=== PATIENT | male | born 1940 | race Caucasian/White ===

== ENCOUNTER 2016-12-15 04:02 | Inpatient (IN) | payer MEDICARE ==
[2016-12-15] VITALS (21 sets, daily range): BP systolic 104–160; BP diastolic 65–101; PULSE 54–82; RESP 14–20; O2SAT 92–98
[~2016-12-15] VITALS: Ht 180.3 cm; Wt 101.6 kg
[~2016-12-15 04:02] MED LIST: ZES10 PO
[2016-12-15] MEDS ORDERED: Heparin 25,000 Unit/500 mL 0.45% NS Premix IV ONE (04:24)
[2016-12-15] MEDS ORDERED: Nitroglycerin 50,000 mcg/250 mL D5W Premix IV ONE ×2 (04:24→04:51)
[2016-12-15] MEDS ORDERED: MeTOProlol 1 mg/mL 5 mL Inj ONE (04:24)
[2016-12-15] MEDS ORDERED: Nitroglycerin 2% 1 Gm Ointment TOPICAL ONE (04:24)
[2016-12-15] MEDS ORDERED: Ondansetron 2 mg/mL 2 mL Inj ONE (04:25)
[2016-12-15] MEDS ORDERED: Heparin 5,000 Unit/mL Inj ONE (04:26)
[2016-12-15 04:43] LABS: BASOPHILS % (AUTO) 0.2 % (0-3); EOSINOPHILS % (AUTO) 0.8 % (0-5); MONOCYTES % (AUTO) 4.7 % (4-12); Mean Corpuscular Hemoglobin 31.1 pg (27.0-35.0); Mean Corpuscular Volume 89.3 fL (81-100); NEUTROPHILS % (AUTO) 83.2 % (40-74); Platelet Count 209 bil/L (150-400)
--- NOTE | 2016-12-15 04:47 | ED.REPORT ---
HPI-Chest Pain 40 and Over Date of Service Dec 15, 2016 ED Provider: Darwin Arreola MD A 76 year old male with a history of hypertension presents to the ED complaining of abdominal pain and chest tightness. The pt began experiencing these symptoms two days ago, which he attributed to indigestion. The pain waxed and waned since, resolving briefly yesterday. The pain returned after dinner and radiated more noticeably into his chest. The pt woke at 03:00 this morning and decided to seek medical care. The pt denies nausea, vomiting, or diaphoresis. He also denies any history of cardiac disease, stomach ulcers, or GI bleed. Nursing Notes Stated Complaint: CHEST PAIN Chief Complaint: Male Abdominal Pain Nursing Notes Reviewed: Yes Allergies: Coded Allergies: No Known Allergies (Unverified , 12/15/16) Scheduled Lisinopril-Expunged Drug, Do Not Renew! (Lisinopril-Expunged Drug, Do Not Renew! ) 10 Mg Tablet 10 MG PO DAILY General Time Seen by MD: 04:46 Chief Complaint Chest pain Hx Obtained From: Patient Arrived By: Walk-in Sudden in Onset?: No Onset Occurred: 2 days ago Symptom Duration: Intermittent Recent Healthcare: No recent doctor visit, No recent hospitalization Similar Sx Previous: No Past Medical History Past Medical History hypertension arthritis Past Surgical History colonoscopy Smoking History Unknown if Ever Smoker Social History Other Social History: Good social support, Ambulatory Status Independent Review of Systems Constitutional: Denies: Fever Respiratory: Denies: Non-productive cough Cardiovascular: Reports: Chest pain GI: Reports: Abdominal pain, Nausea, Denies: Vomiting Musculoskeletal: Denies: Back pain Skin: Denies Rash Complete sys rev & neg: except as marked. Physical Exam Initial Vital Signs Vital Signs (First) Date Time Temp Pulse Resp B/P Pulse Ox O2 Delivery O2 Flow Rate FiO2 12/15/16 04:05 36.1 63 16 158/93 95 Room Air Initial VS: Reviewed General/Constitutional: Awake, Alert Respiratory / Chest: Atraumatic, Breath sounds NL, Breath sounds = bilat, No respiratory distress Cardiovascular: Heart rate NL, Regular rhythm, Heart sounds NL Abdomen: Atraumatic, Soft, Non-tender Neck: Atraumatic, Supple, Full range of motion Back: Atraumatic, Full range of motion Lower Extremity / Pelvis / MS: Atraumatic, Full range of motion Skin: Atraumatic, Color NL, No rash, Warm, Dry Neurologic: Oriented X3, Speech NL, No motor deficits, No sensory deficits Psychiatric: Affect NL, Mood NL Head / Eyes: Atraumatic, Normocephalic, PERRL, EOMI ENT: Atraumatic, Airway patent, Mucous membranes moist Upper Extremity / MS: Atraumatic, Full range of motion Interpretation & Diagnostics Lab Results Interpretation Result Diagram: 12/15/16 0430 12/15/16 0430 Test 12/15/16 04:30 White Blood Count 10.1th/mm3 (3.8-10.1) Red Blood Count 5.79mil/mm3 (4.40-5.80) Hemoglobin 18.0g/dL (13.8-17.2) Hematocrit 51.7% (41.0-50.0) Mean Corpuscular Volume 89.3fL (81-100) Mean Corpuscular Hemoglobin 31.1pg (27.0-35.0) Mean Corpuscular Hemoglobin Concent 34.8% (32.0-37.0) Red Cell Distribution Width 13.4% (12.3-15.4) Platelet Count 209bil/L (150-400) Neutrophils (%) (Auto) 83.2% (40-74) Lymphocytes (%) (Auto) 11.0% (14-46) Monocytes (%) (Auto) 4.7% (4-12) Eosinophils (%) (Auto) 0.8% (0-5) Basophils (%) (Auto) 0.2% (0-3) Prothrombin Time 10.6sec (8.1-12.5) Prothromb Time International Ratio 0.99ratio Activated Partial Thromboplast Time 27.3sec (22.8-33.0) Sodium Level 138mEq/L (134-144) Potassium Level 3.7mEq/L (3.5-5.2) Chloride Level 98mEq/L (97-108) Carbon Dioxide Level 23mmol/L (18-29) Blood Urea Nitrogen 14mg/dL (8-27) Creatinine 0.99mg/dL (0.76-1.27) Estimat Glomerular Filtration Rate 78mL/min (>59) Glucose Level 162mg/dL (60-99) Calcium Level 9.1mg/dL (8.5-10.1) Magnesium Level 2.1mg/dL (1.6-2.6) Total Bilirubin 0.8mg/dL (0.0-1.2) Aspartate Amino Transf (AST/SGOT) 40U/L (0-50) Alanine Aminotransferase (ALT/SGPT) 39U/L (0-44) Alkaline Phosphatase 71U/L (25-160) Total Creatine Kinase 270U/L (21-232) Creatine Kinase MB 23.9ng/mL (0.0-10.4) Creatine Kinase MB % 8.9% (0.0-5.0) Troponin T 0.138ug/L (0.0-0.011) Total Protein 7.6g/dL (6.4-8.4) Albumin 4.4g/dL (3.4-5.0) Hold Rolle Top Tube Received (Received) ECG Interpretation ECG Interpretation: normal sinus rhythm with a rate of 60 abnormal R-wave progression, early transition inferior infarct, acute ST elevation, consider anterior injury probable RV involvement, suggest recording right precordial leads Time: 04:20 Interpreted by: ED physician X-Ray Chest Interpretation Chest Xray Interpretation: no acute findings Interpretation / Wet Read by: Wet read ED physician Re-Eval/Medical Decision Med Decision/Clinical Course 76-year-old presents with stuttering chest pain beginning two days ago, with pain-free. Yesterday and then recurrent pain tonight. EKG shows inferolateral STEMI. There is some cueing inferiorly already. Team consulted and he is taken to the laboratory equipment installer promptly for revascularization. Time of Eval: 04:46 Re-Evaluation/Progress Note: Pt informed of the need for admission during the initial interview. The pt understands and agrees with the plan. All questions are addressed at this time. Time of Eval: 04:52 Re-Evaluation/Progress Note: Pt rechecked to reevaluate vitals. The plan for admission is further discussed. Consultation : Referral / Consult Name: Basim Rios MD Consulted With: Cardiology Call Returned at: 04:26 Brancher: Agrees with eval, Agrees with plan Note: Spoke with Dr. Rios, cardiology, regarding pt's case. Dr. Rios agrees with the evaluation and agrees to admit the pt to the laboratory equipment installer. Counseled Regarding: Diagnosis, Lab results, Need for admission Discharge & Departure Primary Impression: STEMI (ST elevation myocardial infarction) Additional Impression: Acute OR, inferolateral wall Disposition: ADMITTED TO HOSPITAL Discharge Condition All VS Reviewed: Yes Condition: Stable Referrals: Dallas Cavanaugh MD (PCP) Crit Care Except Billable Proc Time Spent: 30-74 minutes (thirty minutes) Services Performed: Patient management by me, Time spent at bedside, Reviewing test results, Reviewing imaging, Discussing patient care, Documentation in record, Time with fam/surrogate Scribe Attestation Portions of this note were transcribed by Aj Stringer. I, Dr. Arreola personally performed the history, physical exam and medical decision-making; I reviewed and confirmed the accuracy of the information in the transcribed note. Signed by: Shen Siddiqui, 12/15/2016 and 0538. copies to: Dallas Cavanaugh MD, Christopher W MD Dec 15, 2016 04:47 AJ STRINGER Dec 15, 2016 05:06
[2016-12-15] MEDS ORDERED: Heparin 1,000 Units/500 mL NS Premix IV ONE (04:51)
[2016-12-15] MEDS ORDERED: Atropine 1 mg/10 mL (Code) Syringe ONE (04:51)
[2016-12-15] MEDS ORDERED: Phenylephrine/NS-PF 100 mCg/mL 5 mL Syringe IVPUSH ONE (04:51)
[2016-12-15] MEDS ORDERED: Heparin 1,000 Unit/mL 10 mL Inj ONE ×3 (04:51→05:37)
[2016-12-15] MEDS ORDERED: 0.9% Sodium Chloride 2,000 ML ONE (04:51)
[2016-12-15 05:00] LABS: INR 0.99 ratio
[2016-12-15] MEDS ORDERED: fentaNYL-PF 50 mCg/mL 2 mL Inj ONE (05:18)
[2016-12-15 05:30] LABS: Magnesium 2.1 mg/dL (1.6-2.6)
[2016-12-15 05:35] LABS: TROPONIN T 0.138 ug/L (0.0-0.011)
[2016-12-15] MEDS ORDERED: 0.9% Sodium Chloride 1,000 ML ONE (05:37)
[2016-12-15] MEDS ORDERED: 0.9% Sodium Chloride 400 ML (4 HRS) IV ONE (07:30)
[2016-12-15] MEDS ORDERED: Sodium Chloride LOK Flush 10 mL Syringe IVFLUSH PRN (07:30)
[2016-12-15] MEDS ORDERED: Ondansetron 2 mg/mL 2 mL Inj IVPUSH PRN (07:30)
[2016-12-15] MEDS ORDERED: 0.9% Sodium Chloride 250 ML BOLUS IV PRN (07:30)
[2016-12-15] MEDS ORDERED: Atropine 1 mg/10 mL (Code) Syringe IVPUSH PRN (07:30)
--- NOTE | 2016-12-15 08:29 | NUR ---
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 Pain free. HR 50', no ectopy. Right groin with angioseal, no evidence bleeding or hematoma. Admission complete, pt alert, oriented and participatory in process. Wallet and cell phone to go home with .
--- NOTE | 2016-12-15 08:46 | CS94 ---
[address] [address] DIAGNOSTIC CARDIAC CATHETERIZATION PATIENT: DAY SKINNER : 1940 MR#: [id number] ADMIT: 12/15/2016 JOB ID: [id number] SERVICE DATE: 12/15/2016 PROCEDURE NOTE -- CARDIAC CATHETERIZATION LABORATORY: DATE OF PROCEDURE: Thursday, December 15, 2016. SERVICE DELIVERY SUPERVISOR: Basim Rios MD. PROCEDURES: 1. Coronary angiogram -- emergent. 2. Percutaneous coronary intervention (PCI) with drug-eluting stent (REINA) of occluded proximal right coronary artery (RCA) -- Xience 3.0 x 23 mm (post dilated to 4.0 mm). 3. Left heart catheterization (LHC): a. Pressure measurement: Left ventricular end-diastolic (LVED) and pullback. b. Left ventriculogram (LVG). CLINICAL DETAILS: This 76-year-old man presented to the emergency department by personal vehicle with ongoing discomfort that had been present for over two days. The discomfort was in his upper abdomen. ECG shows inferior ST elevation with confirmatory reciprocal ST depression. PROCEDURAL DETAILS: I evaluated him emergently in the emergency department. I discussed the findings, impressions and management considerations with him and his including the recommendation to proceed emergently to coronary angiogram for definitive diagnosis and to determine treatment options including medical therapy, anticipated PCI, or coronary bypass surgery, if needed. We discussed the procedure including possible risks and complications. We discussed bleeding, infection and blood clots; as well as injury to nerve, artery, vein, or kidney; and also arrhythmia, drug reaction, or others. We discussed treatment as needed including surgery, pacemaker, or transfusion. We discussed more serious complications that can occur including stroke, heart attack, and emergency surgery including transfer for coronary bypass surgery. After questions and discussion, he signed informed consent to proceed. He was taken to the catheterization laboratory, where he was prepped sterilely and draped. Prior to the intervention he had received ASA 324 mg chewed, as well as heparin IV bolus and heparin IV infusion. For the intervention he received prasugrel 60 mg p.o. loading dose. Procedural anticoagulation was obtained using bolus heparin IV to achieve therapeutic ACT. Aliquots of NTG IC were used as needed. He received liberal IV hydration with normal saline. CORONARY ANGIOGRAM: Arterial access was obtained without difficulty in the right common femoral artery using fluoroscopic localization over the femoral head and modified Seldinger technique to insert a 6-Qatari 10 cm side-arm sheath. Catheters were advanced and exchanged over a long J-tipped 0.035-inch guidewire. First, the right coronary artery was engaged with a 6-Qatari JR-4 catheter. After the intervention, the left coronary artery was engaged with a 6-Qatari JL-4 diagnostic catheter. LHC AND LVG: At the end of the procedure, a 6-Qatari pigtail catheter was introduced across the aortic valve into the left ventricle. Pressure measurements were made. LVG was performed in the 30-degree POSADAS projection using 36 cc of contrast injected at 12 cc/second. PCI OF OCCLUDED CULPRIT PROXIMAL RCA: The diagnostic images were reviewed. Decision was made to proceed with emergent PCI to revascularize the occluded culprit proximal RCA. For intervention, the 6-Qatari JR-[address] was used for the intervention. The occlusion was crossed without difficulty with a BMW wire -- 0.014 inches x 190 cm -- which was placed distally in the PDA. PREDILATATION: The occluded artery (MODESTO-0 flow) was opened with a Trek balloon -- 2.0 x 15 mm -- which was placed across the occlusion and inflated to 8 atmospheres. The artery was opened. Estimated [id number]-rz-[id number] time was 85 minutes. Reperfusion was well tolerated. The lesion was further pre-dilated with a Trek RX balloon -- 3.0 x 15 mm -- inflated across the residual thrombotic-appearing lesion at the site of occlusion to 6 atmospheres. STENT: The proximal RCA lesion was treated with a Xience Alpine REINA -- 3.0 x 23 mm -- deployed across the lesion at 18 atmospheres. POSTDILATATION: The lesion was post dilated with a noncompliant Trek NC balloon -- 3.5 x 12 mm -- inflated twice within the stented segment to 20 atmospheres. Further post dilatation was performed with a noncompliant Trek NC balloon -- 4.0 x 12 mm -- deployed twice within the stented segment to 18 mm. Completion angiogram showed an excellent angiographic result with no residual narrowing; MODESTO-3 flow restored; and no evident angiographic complication. Procedure without difficulty. Patient tolerated procedure well. No complications. A side-arm sheath angiogram showed adequate access in the right common femoral artery for closure device. Arterial hemostasis was obtained without difficulty using a 6-Qatari Angio-Seal. The patient became chest pain free and was clinically stable, was improved and transferred from the catheterization laboratory to the CCU unit for ongoing care. I discussed the procedure, findings and ongoing management recommendations with the patient, as well as with his and family. FINDINGS: LMCA: The left main coronary artery is a short vessel with no angiographic obstructive lesions. LAD: The left anterior descending coronary artery is a large vessel with one large diagonal; and it reaches the apex. The LAD has moderate diffuse atherosclerotic plaquing typically in the proximal segment. The mid LAD has a tubular segment of severe systolic compression without an apparent fixed lesion at that site. The early mid LAD just after the takeoff of the large diagonal has an intermediate 60% focal narrowing. LCX: The left circumflex coronary artery is a large vessel. Its distribution consists of a large branching obtuse marginal. The OM branch has a tubular, 70% to 80% proximal narrowing with MODESTO-3 flow. The OM has a small to medium-sized inferior branch with a 70% ostial focal narrowing but MODESTO-3 flow. RCA: Dominant. The RCA is initially occluded proximally prior to the first RV branch. The occlusion is hazy and when opened, the site of occlusion includes the takeoff of a moderate-sized RV branch. The occlusion site appears irregular, hazy and thrombotic. The RCA is a 4 mm vessel. Distally, it bifurcates into a large PDA and posterolateral branches. There is a focal 80% mid PDA lesion with MODESTO-3 flow. No left to right collaterals. At the end of the procedure, there is a small to modest myocardial blush note. LHC: LVED 19 mmHg; and no systolic gradient on pullback across the aortic valve. LVG: Normal-sized left ventricle with overall intact global systolic function including estimated ejection fraction of 60%. There is inferior hypokinesis noted. No MR. CONCLUSIONS: 1. Percutaneous coronary intervention -- proximal right coronary artery -- Xience Alpine 3.0 x 23 mm; post dilated to 4.0 mm. 2. ACS (acute coronary syndrome) -- acute inferior ST-elevation myocardial infarction ; including culprit occluded proximal right coronary artery. 3. CAD (coronary artery disease) -- three-vessel coronary artery disease including occluded proximal right coronary artery; 80% mid posterior descending artery; 60% mid left anterior descending at diagonal bifurcation; 70% to 80% large obtuse marginal. RECOMMENDATIONS: 1. ECASA -- indefinitely. 2. Plavix -- plan one year if well tolerated including with ongoing cardiology followup. I discussed with the patient and his family the critical importance of mandatory dual antiplatelet therapy; and not to stop Plavix for any reason without immediate Cardiology consultation. 3. Echocardiogram. 4. Guideline-directed optimal medical therapy including aspirin, Plavix, statin, beta antonio (note initial bradycardia); and consideration of KOBY inhibitor. COMMENT: The left ventriculogram shows surprisingly little inferior wall dysfunction given the prolonged symptoms still presentation. Ongoing followup can include reconsideration of the other coronary lesions including in the LAD after diagonal; proximal OM; and mid PDA. None of these appear to be clinically active currently.
--- NOTE | 2016-12-15 08:59 | HP ---
[address] [address] HISTORY AND PHYSICAL PATIENT: DAY SKINNER : 1940 MR#: [id number] ADMIT: 12/15/2016 JOB ID: [id number] CARDIOLOGY ADMISSION HISTORY AND PHYSICAL--INITIAL CRITICAL CARE EVALUATION( EMERGENCY DEPARTMENT): DATE OF EVALUATION: Thursday, December 15, 2016. ADMITTING PHYSICIAN: Cardiology--Basim Rios M.D. PROBLEMS: 1. ACUTE CORONARY SYNDROME (ACS): a. Chest pain--ongoing chest pain for over two days. b. STEMI--acute inferior myocardial infarction with inferior STelevation on ECG; and reciprocal ST depression CAD RISK FACTORS: No history of diabetes. Hypertension-treated. No history of treated hyperlipidemia. Lifetime nonsmoker. Family history of premature coronary disease--Noncontributory. CHIEF COMPLAINT: Abdominal pain. Abnormal ECG with inferior ST elevation. 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 On qustioning it may also go into the retrosternum.It is aching. It does not radiate. It has been present with moderate intensity for over two days--currently on presentation 5, moderate intensity. He has not had other GI symptoms of nausea, vomiting, diarrhea. He has not had other cardiac symptoms of dyspnea. In the emergency department, ECG showed ST elevation and focused attention on a cardiac etiology. He received ASA 324 mg chewed; as well as Heparin IV bolus and infusion. He was otherwise clinically stable. CARDIAC HISTORY: He has no prior cardiac history. He is generally quite active without effort, limitation or effort-related symptoms and he reports no other recent premonitory symptoms except he generally felt fatigued recently. 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 More recently, he has been less active but without symptoms. He has no other cardiac symptoms of heart failure such as nocturnal dyspnea or edema. He has no history of arrhythmia or current symptoms of arrhythmia such as tachy palpitations, presyncope or syncope. Regarding other possible underlying vascular disease, he reports no history of CVA; or of current symptoms of TIA. No claudication. Regarding possible dual antiplatelet therapy, he reports no bleeding symptoms; no anticipated upcoming surgery; and he says he is reliable to take mandatory medicines if needed. ALLERGIES: No known drug allergies. I elicit no history of allergy to medical contrast, seafood, fish, iodine or shellfish. MEDICATIONS: He takes a combination of lisinopril/HCTZ for hypertension. PAST MEDICAL HISTORY: He reports he is generally healthy and does not have other significant medical diagnoses. REVIEW OF SYSTEMS: I questioned him in the emergent setting about a 13 point review of systems, which is unremarkable, noncontributory and negative except as noted including: Constitutional--no constitutional symptoms. No history of thyroid disorder. No history of lung disorder including asthma, wheezing or chronic dyspnea. GI--no history of GI disorder including indigestion, ulcer, hepatitis or jaundice. PERSONAL AND SOCIAL HISTORY: CIGARETTES--lifetime nonsmoker. ETOH--he reports he uses little alcohol. FAMILY--He lives with his who is present; and his daughter and son-in-law arrived. 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 FAMILY HISTORY: Noncontributory regarding premature coronary disease. EXAMINATION: GENERAL APPEARANCE: A pleasant elderly man who is in mild distress with abdominal and chest discomfort. VITAL SIGNS: Blood pressure 140/80. Heart rate 66, regular and sinus rhythm on telemetry. Respiratory rate 18, unlabored. Oxygen saturation 96% on nasal cannula. Weight 215 pounds. NEUROLOGIC AND MENTAL STATUS: No overt focal neurologic defect noted. He is alert, oriented, appropriate and conversant. HEENT: PERRL. Conjunctivae pink. Sclerae not icteric. Mouth and mucous membranes intact. NECK: Carotid upstroke intact bilaterally without bruit. Jugular venous pressure unremarkable, examined supine. No palpable thyromegaly. No palpable cervical lymphadenopathy. LUNGS: Clear to auscultation bilaterally. Examined supine. CARDIAC: No chest wall tenderness. Cardiac examination otherwise notable for a regular rhythm S4 and there is no loud murmur heard. ABDOMEN: Obese but otherwise unremarkable without tenderness, mass, hepatosplenomegaly or bruit of abdominal aortic aneurysm. EXTREMITIES: No edema. Pedal pulses are faintly present bilaterally. DIAGNOSTIC STUDIES: ELECTROCARDIOGRAM: I reviewed the initial ECG tracing which shows sinus rhythm at [address] elevation; and confirmatory reciprocal lateral ST depressions; and coved right precordial ST elevation that may represent RV involvement. CHEST X-RAY: The chest x-ray film was unremarkable from a cardiac point of view except for cardiomegaly but no pulmonary venous hypertension or other findings of heart failure. LABORATORY: CBC includes WBC 10,100 with hemoglobin 18.0. Hematocrit 51.7. Normal indices and platelet count 209,000. INR 0.99. Chemistries include potassium 3.7, BUN 14, creatinine 0.99. Estimated GFR 78. Glucose 62, magnesium 2.1. Liver function tests unremarkable. Cardiac markers include CK total only 270 with CK-MB elevated at 23.9 and troponin T elevated 0.138. ASSESSMENT: I discussed my findings, impressions, and management considerations with the emergency department staff; and with the patient; and with his and family including: ACS with acute inferior NJ with ongoing CP: He presents with atypical discomfort which is primarily abdominal discomfort; but he has ongoing symptoms. ECG confirms acute inferior NJ. He is otherwise clinically stable. Note the long time from onset of his symptoms to presentation. I discussed the recommendation to proceed emergently to cardiac catheterization to define coronary anatomy and guide treatment options including medical therapy, anticipated PCI; or consideration of coronary bypass if needed. PLAN: 1. Cardiac catheterization and anticipated PCI--emergent. 2. Echocardiogram. 3. OMT--guideline directed optimal medical therapy for coronary disease and risk factor management including aspirin, anticipated Plavix; statin; beta-antonio; and consideration of KOBY inhibitor. SINA
--- NOTE | 2016-12-15 09:04 | DRSVH ---
PROCEDURE: X-RAY CHEST ONE VIEW, PORTABLE ([id number]) INDICATIONS: CHEST PAIN TECHNIQUE: One view of the chest was acquired. COMPARISON: None. FINDINGS: Surgical changes and devices: None. Lungs and pleura: No pleural effusions or pneumothorax. Lungs are clear. Mediastinum: Mediastinal contours appear normal. Heart size is normal. Bones and chest wall: No suspicious bony lesions. Overlying soft tissues appear unremarkable. IMPRESSION: No acute cardiopulmonary disease process. Dictated by: Suzi Stanley MD, PhD on 12/15/2016 at 9:02 Approved by: Suzi Stanley MD, PhD on 12/15/2016 at 9:03
[2016-12-15 10:52] LABS: APPEARANCE,URINE CLEAR (CLEAR,HAZY); COLOR,URINE STRAW (YELLOW); OCCULT BLOOD,URINE TRACE (NEGATIVE); PH,URINE 6.5 (5.0-8.0); UROBILINOGEN,URINE NORMAL (NORMAL)
--- NOTE | 2016-12-15 15:11 | NUR ---
Tele/Pain/PO/Groin/Activity Tele has been SB-SR. Denies pain. Taking PO well. Groin w/o bleeding or hematoma and site is soft, pedal pulses are palpable. Up to BSC w/o incident. Continuing with POC.
--- NOTE | 2016-12-16 00:14 | PROG NOTE ---
[address] [address] PROGRESS NOTE PATIENT: DAY SKINNER : 1940 MR#: [id number] ADMIT: 12/15/2016 JOB ID: [id number] CARDIOLOGY PROGRESS NOTE-FOLLOW UP INPATIENT EVALUATION: DATE: 12/15/2016 PROBLEMS: 1. ACS. a. Inferior STEMI. b. PCI--REINA of proximal RCA. c. CAD. 2. HOSPITAL DAY 1. SUBJECTIVE: Hospital course: I saw this 76-year-old man along with his and other family members this afternoon on Cardiology rounds. He came to the hospital at 4 a.m. with chest pain. An ECG showed STEMI. He had emergent PCI of occluded proximal RCA. I reviewed his hospital course. Since this morning, he has done very well without further chest pain or other cardiac symptoms. He has no problem with the catheterization access site in his right groin. He has not been much out of bed yet except in the room. He has been eating, drinking and has had satisfactory urine output. MEDICATIONS: 1. Aspirin. 2. Plavix. 3. Statin. 4. Metoprolol. OBJECTIVE: Examination: He is alert, comfortable, and appears well. Vital signs stable with blood pressure 141/68, pulse 82, sinus, afebrile, SpO2 of 97% on room air. Right lower extremity: His cath site is intact without significant ecchymosis, hematoma, pulsatile mass, bruit; and there is intact distal perfusion. LABORATORY: No new labs since his admission earlier today except note CK total 1204, with CK-MB 153.2. ECG: The postprocedure ECG shows substantial resolution and near normalization. There are inferior Q-waves. CHEST X-RAY: The admitting chest x-ray was unremarkable from a cardiac point of view. ASSESSMENT: I discussed the current updated findings, impressions and management considerations with him and his and family includin. Acute coronary syndrome with ST-elevation myocardial infarction: He is doing well clinically. He had a moderate-sized infarct. 2. Note also echocardiogram pending. PLAN: 1. Echocardiogram. 2. OMT-continue guideline directed optimal medical therapy as noted above. Consider KOBY inhibitor later after contrast. 3. Re-ambulation and to re-evaluate for timing of discharge tomorrow.
[2016-12-16 03:18] LABS: Mean Corpuscular Hemoglobin 31.2 pg (27.0-35.0)
[2016-12-16 04:27] VITALS: BP 110/68; PULSE 60; RESP 16; O2SAT 92
--- NOTE | 2016-12-16 04:51 | NUR ---
Pain/RT groin/Activity/telemetry Pt denies pain and discomfort at this time and is able to ambulate independently in his room. RT groin site with noted small bruise without drainage. MD removed dressing, now open to air. No bleeding or hematoma noted. Pedal pulses palpable. Denies numbness and tingling. Tele: SR 63, IVCD per residential monitor. Care ongoing.
[2016-12-16 05:00] VITALS: PULSE 59
[2016-12-16 08:16] VITALS: BP 111/64; PULSE 60; RESP 17; O2SAT 92
[2016-12-16 09:52] VITALS: PULSE 98
--- NOTE | 2016-12-16 11:54 | NUR ---
Social Work-initial assessment: Data & Assessment: See initial assessment. EMR Reviewed. Pt is a 76 y/o male who was admitted on 12/05/16 for STEMI per H&P. Patient confirmed that his insurance is [employer] and PCP is Dallas Cavanaugh MD. Pt's readmission score is 0-low risk. SW met with patient to discuss discharge planning, SW role explained and initial assessment complete. Pt is alert and oriented x3. Pt resides at home with in a multi level home with no steps to enter and eight steps on the inside where pt remains independent with basic ADLs. Pt independent at baseline and does drive. Pt has no HH or SNF history. Pt states that he has completed a DPOA/ advanced directive, but he is not sure who his DPOA is. SW requested a copy of patient's DPOA/ advanced directive. Pt has no intermediate designer care or VA benefits. No discharge needs identified at this time. Pt's family to provide transport home at discharge. SW provided phone number and plan on white board in room. SW will continue to follow. Plan:Pt to likely discharge home no needs. No discharge needs identified at this time. SW will continue to follow. Alana Cabrera LMSW, TAMIR Addendum: 12/16/16 at 1259 by ALANA CABRERA Amended: Links added.
[2016-12-16 12:06] VITALS: BP 119/71; PULSE 55; RESP 18; O2SAT 93
[2016-12-16] MEDS ORDERED: ASPI81TA3 PO (14:20)
[2016-12-16] MEDS ORDERED: METO25TA6 PO (14:20)
[2016-12-16] MEDS ORDERED: CLOP75TA28 PO (14:20)
[2016-12-16] MEDS ORDERED: ATOR40TA69 PO (14:20)
--- NOTE | 2016-12-16 14:22 | PCM.DIMED ---
Discharge Instructions Date of Service Dec 16, 2016 Dates of Hospitalization Dec 15, 2016 at 05:01 Discharge Diagnosis Discharge Diagnosis cad; stemi; pci. Diet Heart Healthy Call your provider Chest pain Patient Instructions Follow-up with PCP in: 1 week Provider: Ochoa Oconnor MD Follow-up in: 1 week Basim Rios MD Dec 16, 2016 14:22
--- NOTE | 2016-12-16 14:49 | DRSVH ---
Located Within [facility] [address] [place] [address] Echocardiogram Report Name: DAY SKINNER Abdoulaye e: 12/16/2016 Height: 71 in Hospital Exam Location: [facility] Weight: 224 lb Gender: Other BSA: 2.2 m2 : 1940 Age: 76 yrs BP: 110/68 mmHg Reason For Study: POST STEMI Performed By: Grady Frazier Referring Physician: SANTIAGO RODNEY Interpretation Summary The left ventricle is normal in size. The ejection fraction is estimated to be 55-60%.There is basal inferior wall akinesis. There is mid inferior wall akinesis. There is posterolateral wall hypokinesis. The right ventricle is grossly normal size. The right ventricular systolic function is normal. There is mild to moderate mitral regurgitation. The aortic root is mildly dilated. The ascending aorta is mildly enlarged. There is mild luminal irregularity and echogenicity in the abdominal aorta, suggestive of aortic atherosclerotic disease. Mild atherosclerotic plaque(s) in the aortic arch. Procedure: A two-dimensional transthoracic echocardiogram with color flow and Doppler was performed. The study quality was technically adequate. There is no prior echocardiogram noted for this patient. The patient was in sinus bradycardia with heart rates between 57-62 bpm during the exam. Left Ventricle: The left ventricle is normal in size. There is mild concentric left ventricular hypertrophy. Proximal septal thickening is noted. There is no echo evidence for significant left ventricular outflow tract obstruction. There is no thrombus. The ejection fraction is estimated to be 55-60%. There is basal inferior wall akinesis. There is mid inferior wall akinesis. There is posterolateral wall hypokinesis. Spectral Doppler of the mitral valve is reversed, with an E/A wave ratio < 1.0. Right Ventricle: The right ventricle is grossly normal size. The right ventricular systolic function is normal. Atria: The left atrial size is normal. The right atrium grossly appears normal in size. The interatrial septum is intact with no evidence for an atrial septal defect. Mitral Valve: The mitral valve is grossly normal. The mitral valve leaflets are slightly calcified. There is mild to moderate mitral regurgitation. Aortic Valve: The aortic valve is trileaflet. The aortic valve is slightly calcified. There is no aortic valve stenosis. No aortic regurgitation is present. Tricuspid Valve: The tricuspid valve is not well visualized, but is grossly normal. Pulmonary artery pressures cannot be estimated because of the lack of a measurable TR jet velocity. There is trace tricuspid regurgitation. Pulmonic Valve: The pulmonic valve is not well visualized. Great Vessels: The aortic root is mildly dilated. The ascending aorta is mildly enlarged. There is mild luminal irregularity and echogenicity in the abdominal aorta, suggestive of aortic atherosclerotic disease. Mild atherosclerotic plaque(s) in the aortic arch. The pulmonary artery is normal size. The IVC is of normal diameter and collapses greater than 50% with a sniff. This suggests a low right atrial pressure of 3 mm Hg. Pericardium/ Pleura There is no pericardial effusion. There is no pleural effusion. MMode/2D Measurements & Calculations LVIDd: 4.5 cm LA A2 area LVOT diam: 2.3 cm LV kaur. diameter/BSA LVIDs: 3.2 cm Ao root diam (cm/m^2): 2.0 FS: 28.2 % IVSd: 1.2 cm LA A4 area asc Aorta Diam LVPWd: 1.2 cm LA length Ao Arch Diam (vol): 5.4 cm (Prox Trans): LA vol: 48.4 ml .0 cm LA vol index : 21.9 ml/m2 LV sys. diameter/BSA RVD1 (basal) RVD2 (mid) TAPSE: 2.4 cm (cm/m^2): 1.5 : 2.8 cm Doppler Measurements & Calculations Ao V2 max: 112.5 cm/sec MV E max lebron MV E/A: 1.1 PA V2 max Ao max P.1 mmHg : 83.8 cm/sec MV A dur : 72.2 cm/sec Ao mean P.9 mmHg MV A max lebron : 0.15 sec PA mean PG LVOT Max Lebron : 78.8 cm/sec : 1.4 mmHg : 109.6 cm/sec JENNIFER(I,D): 3.6 cm sev ratio: 0.89 MV dec time: 0.19 sec Ao V2 mean LV V1 max PG PA V2 mean : 80.5 cm/sec : 57.2 cm/sec Ao V2 VTI: 22.8 cmLV V1 VTI PA pr(Accel) JENNIFER(V,D): 3.9 cm2 : 20.3 cm : 24.5 mmHg JENNIFER indexed to BSA (cm^2/m^2): 1.6 Reading Physician:PM
--- NOTE | 2016-12-16 15:25 | NUR ---
discharge Patient is alert and orientedX3. Reviewed discharge instructions, new doctor signed prescriptions, written care notes and understood. Patient signed discharge paperwork/instructions. patient will call tomorrow and schedule appointments as written on discharge paperwork. Peripheral IV discontinued on bilateral arms with out difficulty. Denied pain or discomfort before discharge. Patient left unit approx [phone] accompanied by nursing staff via wheel chair.
--- NOTE | 2016-12-16 15:44 | DIS ---
[address] [address] DISCHARGE SUMMARY PATIENT: DAY SKINNER : 1940 MR#: [id number] ADMIT: 12/15/2016 JOB ID: [id number] DIS: DISCHARGE SUMMARY--FOLLOWUP INPATIENT CARDIOLOGY EVALUATION: DATE OF ADMISSION: Thursday, December 15, 2016. DATE OF DISCHARGE: Friday, December 16, 2016. DISCHARGE DIAGNOSES: 1. Percutaneous coronary intervention--proximal right coronary artery drug-eluting stents, Xience 3.0 x 23 mm. 2. ACUTE CORONARY SYNDROME--acute inferior myocardial infarction. 3. CAD (coronary artery disease)--three-vessel disease including right coronary artery, and also lesions of left anterior descending and left circumflex. 4. Hypertension. DISPOSITION: Home. FOLLOWUP: Primary physician 3-7 days. Cardiology clinic 7-10 days. Followup including to adjust metoprolol and lisinopril/HCTZ for hypertension. DISCHARGE SUMMARY AND HOSPITAL COURSE: I saw this 76-year-old man today on cardiology rounds in anticipation of discharge today after he presented 36 hours ago with atypical symptoms including primarily abdominal discomfort but with inferior ST-elevation on ECG that led to emergent revascularization of occluded proximal RCA. He has done very well in the interim, began ambulating yesterday and is ambulating very well today. The right lower extremity catheterization access site is fully intact on examination today. He has had no further chest pain or other cardiac symptoms. His echocardiogram was done today and shows well preserved global LV systolic function with his estimated ejection fraction of 60%. There was a wall motion defect with inferior hypokinesis consistent with his inferior MT, but it is unimpressive. He did, however, present with relatively prolonged ischemic time and his CK total, 1204, suggest a moderate-sized infarction. His his other laboratory results including creatinine 1.12 are intact today. We rediscussed his status today prior to discharge including with his and including the findings, impressions, and ongoing management considerations. We discussed activity prescription, including recommendation for rehab program. We discussed followup is with primary physician and Cardiology. We discussed not to take his prior lisinopril/HCTZ but to anticipate office followup to up-titrate his metoprolol, change to long-acting, and reintroduce the lisinopril/HCTZ if needed for blood pressure control. His systolic blood pressure today is only 112. We had a long discussion and answered all their questions. MEDICATIONS: 1. ECASA--81 mg p.o. daily. 2. Plavix 75 mg p.o. daily--We discussed plan one year of Plavix and the critical importance of mandatory Plavix, and not to stop for any reason without immediate Cardiology consultation. 3. Metoprolol 12.5 mg tartrate short-acting p.o. daily--and to up-titrate on office followup. 4. Lipitor 40 mg p.o. daily. 5. Lisinopril/HCTZ--Stop at present and reassess in office followup regarding his blood pressure.
== END 2016-12-16 15:45 | disposition home or self-care (01) | DRG 247 ==
LOC: SED 04:02 → SPI 04:56 → CCU 05:01 → PCC 16:44
PROVIDERS: ADMIT Internal Medicine Cardiovascular Disease; ATTEND Internal Medicine Cardiovascular Disease
PROC: 027034Z Dilation of Coronary Artery, One Artery with Drug-eluting Intraluminal Device, Percutaneous Approach (ICD-10-PCS; principal; 2016-12-15)
PROC: 4A023N7 Measurement of Cardiac Sampling and Pressure, Left Heart, Percutaneous Approach (ICD-10-PCS; 2016-12-15)
PROC: B2111ZZ Fluoroscopy of Multiple Coronary Arteries using Low Osmolar Contrast (ICD-10-PCS; 2016-12-15)
PROC: B2151ZZ Fluoroscopy of Left Heart using Low Osmolar Contrast (ICD-10-PCS; 2016-12-15)
DX: I21.19 ST elevation (STEMI) myocardial infarction involving other coronary artery of inferior wall (principal); I10 Essential (primary) hypertension; M19.90 Unspecified osteoarthritis, unspecified site